=== PATIENT | male | born 1945 | race Caucasian/White ===

== ENCOUNTER 2019-03-21 09:59 | Outpatient (REF) | payer OTHER, SELFPAY ==
[2019-03-21 20:37] LABS: HCT 42.6 % (40.0-50.0); HGB 14.1 g/dL (13.5-17.5); Mean Corp. HGB Concentration 33.1 g/dL (32.0-36.0); Mean Corpuscular Hemoglobin 30.4 pg (27.0-33.0); Mean Corpuscular Volume 91.8 fL (80-95); Mean Platelet Volume 9.4 fL (8.0-11.0); Platelet Count 209 x1000/uL (130-400); RBC 4.64 m/cumm (4.50-6.00); RBC Distribution Width 12.7 % (11.8-14.1); White Blood Cell Count 4.67 k/cumm (4.4-10.8)
[2019-03-21 20:43] LABS: ALT 19 U/L (16-63); AST 16 U/L (15-37); Albumin 4.1 g/dL (3.4-5.0); Alkaline Phosphatase 70 U/L (46-116); Anion Gap 11.8 mmol/L (3-11); BUN 26 mg/dL (7-18); Bilirubin, Total 1.2 mg/dL (0.2-1.0); CO2 24.2 mmol/L (21.0-32.0); CREATININE 1.18 mg/dL (0.70-1.30); Calculated LDL 91 mg/dL (<100); Chloride 105 mmol/L (98-107); Cholesterol 168 mg/dL (<200); Glucose 141 mg/dL (74-106); HDL Cholesterol 44 mg/dL (40-60); Potassium 4.7 mmol/L (3.5-5.1); Sodium 141 mmol/L (136-145); Total Protein 6.7 g/dL (6.4-8.2); Triglyceride 168 mg/dL (<150)
== END 2019-03-21 10:19 ==
LOC: NCHCN 09:59
PROVIDERS: PCP Nurse Practitioner Community Health; Referring Provider Nurse Practitioner Community Health; Visit Provider Nurse Practitioner Community Health
DX: I10 Essential (primary) hypertension (principal)
CPT/HCPCS: 80053; 80061; 85027

== ENCOUNTER 2020-09-26 20:17 | Outpatient (REF) | payer OTHER, SELFPAY ==
[2020-09-26 21:49] LABS: Microalb ug/mg Crea 40.3 ug/mg Cr
== END 2020-09-26 20:18 | disposition home or self-care (01) ==
LOC: NCHCN 20:17
PROVIDERS: PCP Nurse Practitioner Community Health; Visit Provider Nurse Practitioner Community Health
DX: E11.319 Type 2 diabetes mellitus with unspecified diabetic retinopathy without macular edema (principal)
CPT/HCPCS: 82043; 82570

== ENCOUNTER 2021-04-02 14:34 | Outpatient (REF) | payer OTHER, SELFPAY ==
[2021-04-02 16:32] LABS: ALT 22 U/L (16-63); AST 13 U/L (15-37); Albumin 3.8 g/dL (3.4-5.0); Alkaline Phosphatase 70 U/L (46-116); Anion Gap 11.2 mmol/L (3-11); BUN 18 mg/dL (7-18); Bilirubin, Total 0.8 mg/dL (0.2-1.0); CO2 24.8 mmol/L (21.0-32.0); Calcium 9.2 mg/dL (8.5-10.1); Chloride 108 mmol/L (98-107); Glucose 127 mg/dL (74-106); Potassium 4.4 mmol/L (3.5-5.1); Sodium 144 mmol/L (136-145); Total Protein 6.6 g/dL (6.4-8.2)
[2021-04-02 16:45] LABS: Bilirubin, Direct 0.1 mg/dL (0.0-0.2)
== END 2021-04-02 14:35 | disposition home or self-care (01) ==
LOC: NCHCN 14:34
PROVIDERS: PCP Nurse Practitioner Community Health; Visit Provider Nurse Practitioner Family
DX: I10 Essential (primary) hypertension (principal); R17 Unspecified jaundice; E11.319 Type 2 diabetes mellitus with unspecified diabetic retinopathy without macular edema
CPT/HCPCS: 80053; 82248

== ENCOUNTER 2021-09-17 15:17 | Outpatient (REF) | payer MEDICARE, SELFPAY ==
[2021-09-17 16:44] LABS: COMMENT (LAB VIEW ONLY) 100.52 mg/dL; Microalb ug/mg Crea 41.3 ug/mg Cr
== END 2021-09-17 15:18 | disposition home or self-care (01) ==
LOC: NCHCN 15:17
PROVIDERS: PCP Nurse Practitioner Community Health; Visit Provider Nurse Practitioner Family
DX: E11.319 Type 2 diabetes mellitus with unspecified diabetic retinopathy without macular edema (principal)
CPT/HCPCS: 82043; 82570

== ENCOUNTER 2022-03-17 17:43 | Outpatient (REF) | payer MEDICARE, SELFPAY ==
[2022-03-17 18:32] LABS: Anion Gap 7.8 mmol/L (3-11); BUN 25 mg/dL (7-18); CO2 26.2 mmol/L (21.0-32.0); CREATININE 1.2 mg/dL (0.70-1.30); Calcium 9.6 mg/dL (8.5-10.1); Calculated LDL 90 mg/dL (<100); Chloride 106 mmol/L (98-107); Cholesterol 166 mg/dL (<200); Estimated GFR 62.29 (mL/min/1.73m2); Glucose 166 mg/dL (74-106); HDL Cholesterol 50 mg/dL (40-60); Potassium 4.2 mmol/L (3.5-5.1); Sodium 140 mmol/L (136-145); Triglyceride 133 mg/dL (<150); Vitamin B12 244 pg/mL (193-986)
== END 2022-03-17 17:44 | disposition home or self-care (01) ==
LOC: NCHCN 17:43
PROVIDERS: PCP Nurse Practitioner Community Health; Visit Provider Nurse Practitioner Family
DX: I10 Essential (primary) hypertension (principal); E78.00 Pure hypercholesterolemia, unspecified
CPT/HCPCS: 80048; 80061; 87491; 87591; 82607

== ENCOUNTER 2023-03-03 14:00 | Outpatient (REF) | payer MEDICARE, SELFPAY ==
[2023-03-03 14:30] LABS: HCT 40.7 % (40.0-50.0); HGB 13.9 g/dL (13.5-17.5); MCH 29.8 pg (27.0-33.0); MCHC 34.2 % (32.0-36.0); MCV 87 fL (80-95); MPV 9.4 fL (8.0-11.0); Platelet Count 196 10^3/uL (130-400); RBC 4.67 10^6/uL (4.36-5.78); RDW 12.8 % (11.8-14.1); RDW-SD 39.7 fL; WBC 4.75 10^3/uL (4.4-10.8)
[2023-03-03 15:06] LABS: ALT 15 U/L (16-63); AST 13 U/L (15-37); Alkaline Phosphatase 84 U/L (46-116); Anion Gap 13.2 mmol/L (3-11); BUN 20 mg/dL (7-18); Bilirubin, Total 1.2 mg/dL (0.2-1.0); CO2 22.8 mmol/L (21.0-32.0); CREATININE 1.2 mg/dL (0.70-1.30); Calcium 9.7 mg/dL (8.5-10.1); Chloride 104 mmol/L (98-107); Glucose 270 mg/dL (74-106); Potassium 4.4 mmol/L (3.5-5.1); Sodium 140 mmol/L (136-145); Total Protein 7.2 g/dL (6.4-8.2)
[2023-03-03 15:37] LABS: COMMENT (LAB VIEW ONLY) 112.41 mg/dL
[2023-03-03 15:44] LABS: Microalb ug/mg Crea 185.5 ug/mg Cr
[2023-03-03 16:02] LABS: Calculated LDL 89 mg/dL (<100); Cholesterol 165 mg/dL (<200); Folate 17.2 ng/mL (8.6-20.0); HDL Cholesterol 49 mg/dL (40-60); Triglyceride 136 mg/dL (<150); Vitamin B12 210 pg/mL (193-986)
== END 2023-03-03 14:01 | disposition home or self-care (01) ==
LOC: NCHCN 14:00
PROVIDERS: PCP Nurse Practitioner Community Health; Visit Provider Nurse Practitioner Family
DX: E11.9 Type 2 diabetes mellitus without complications (principal); E78.00 Pure hypercholesterolemia, unspecified; F10.20 Alcohol dependence, uncomplicated
CPT/HCPCS: 80053; 80061; 85027; 82043; 82570; 82607; 82746

== ENCOUNTER 2023-03-24 13:10 | Outpatient (REF) | payer MEDICARE, SELFPAY ==
[2023-03-24 16:09] LABS: Magnesium 1.8 mg/dL (1.8-2.4)
== END 2023-03-24 13:11 | disposition home or self-care (01) ==
LOC: NCHCN 13:10
PROVIDERS: PCP Nurse Practitioner Community Health; Visit Provider Nurse Practitioner Family
DX: E11.9 Type 2 diabetes mellitus without complications (principal)
CPT/HCPCS: 83036; 83735

== ENCOUNTER 2024-01-25 15:23 | Outpatient (REF) | payer MEDICARE, SELFPAY ==
[2024-01-25 14:37] LABS: Abs Immature Grans 0.01 10^3/uL (0.0-0.06); Absolute Basophil Count 0.05 10^3/uL (0.0-0.2); Absolute Eosinophil Count 0.07 10^3/uL (0.0-0.7); Absolute Lymphocyte Count 0.87 10^3/uL (1.2-3.4); Absolute Monocyte Count 0.36 10^3/uL (0.1-0.8); Absolute Neutrophil Count 3.62 10^3/uL (1.2-6.7); Eosinophils % 1.4 %; HCT 47.4 % (40.0-50.0); HGB 15.8 g/dL (13.5-17.5); Immature Grans % 0.2 %; Lymphocytes % 17.5 %; MCH 28.4 pg (27.0-33.0); MCHC 33.3 % (32.0-36.0); MCV 85 fL (80-95); MPV 9.6 fL (8.0-11.0); Monocytes % 7.2 %; Neutrophils % 72.7 %; Platelet Count 180 10^3/uL (130-400); RBC 5.56 10^6/uL (4.36-5.78); RDW 12.6 % (11.8-14.1); RDW-SD 38.4 fL; WBC 4.98 10^3/uL (4.4-10.8)
[2024-01-25 14:59] LABS: ALT 12 U/L (16-63); AST 10 U/L (15-37); Albumin 3.9 g/dL (3.4-5.0); Alkaline Phosphatase 106 U/L (46-116); Anion Gap 10.6 mmol/L (3-11); BUN 27 mg/dL (7-18); Bilirubin, Total 1.65 mg/dL (0.2-1.0); CO2 23.4 mmol/L (21.0-32.0); CREATININE 1.5 mg/dL (0.70-1.30); Calcium 9.8 mg/dL (8.5-10.1); Chloride 97 mmol/L (98-107); Estimated GFR 47.06 (mL/min/1.73m2); Potassium 5.1 mmol/L (3.5-5.1); Sodium 131 mmol/L (136-145); TSH (W/Ref FT4) 3.29 uIU/mL (0.36-3.74); Total Protein 7.3 g/dL (6.4-8.2)
[2024-01-25 15:12] LABS: Glucose 654 mg/dL (74-106)
--- NOTE | 2024-01-26 08:01 | NUR.NOTE ---
Access chart to see if pt was seen in the ED..Nursing Note:
== END 2024-01-25 15:24 | disposition home or self-care (01) ==
LOC: NCHCN 15:23
PROVIDERS: PCP Nurse Practitioner Community Health; Visit Provider Nurse Practitioner Family
DX: R63.4 Abnormal weight loss (principal); E11.9 Type 2 diabetes mellitus without complications
CPT/HCPCS: 80053; 84443; 85025